=== PATIENT | female | born 1980 | race Caucasian/White ===

== ENCOUNTER 2025-03-20 17:13 | Emergency (ER) | payer OTHER, SELFPAY ==
--- NOTE | 2025-03-20 17:18 | ED_ITS ---
HPI - URI/Sore Throat General Chief Complaint: Dyspnea Stated Complaint: Difficult breathing/Asthma Time Seen by Provider: 03/20/25 17:23 Source: patient Mode of arrival: ambulatory Limitations: no limitations History of Present Illness ED Provider: Luisa Coppola APRN HPI Narrative: 44 yo female with history of asthma here with complaints of cough, wheezing. No recent illnesses. Feels pollen and the humidity may be triggering her asthma. Hasn't used an inhaler in years. Took 15mg prednisone before coming in. No chest pain, shortness of breath, vomiting, diarrhea, skin rash, fevers, chills, leg swelling or leg pain. Related Data Previous Rx's ?Medication ?Instructions ?Recorded loratadine 10 mg tablet (Claritin) 10 mg PO DAILY #30 tabs 03/20/25 prednisone 20 mg tablet 40 mg (2 x 20 mg) PO DAILY #8 tabs 03/20/25 Allergies Allergy/AdvReac Type Severity Reaction Status Date / Time No Known Allergies Allergy Verified 03/20/25 17:20 Review of Systems Review of Systems: Yes all other systems are reviewed and are negative Constitutional: Constitutional: Reports no additional constitutional complaints, Denies body ache(s), Denies chills, Denies fever(s), Denies headache(s) and Denies weakness Eyes: Eyes: Reports no additional eye complaints and Denies change in vision ENT: Reports system reviewed and no additional complaints, except as documented, Denies dizziness, Denies headache(s), Denies nasal congestion, Denies nasal discharge and Denies neck pain Cardiovascular: Cardiovascular: Reports no additional cardiovascular complaints, Denies chest pain, Denies leg edema and Denies dyspnea Respiratory: Respiratory: Reports no additional respiratory complaints, Reports cough and Denies dyspnea Gastrointestinal: Gastrointestinal: Reports no additional gastrointestinal complaints, Denies abdominal pain, Denies diarrhea, Denies nausea and Denies vomiting Genitourinary: Genitourinary: Reports no additional female genitourinary complaints and Denies urinary incontinence Musculoskeletal: Musculoskeletal: Reports no additional musculoskeletal complaints, Denies back pain, Denies arthralgias, Denies joint swelling, Denies neck pain, Denies numbness and Denies tingling Integumentary/Breasts: Skin/Breast: Reports system reviewed and no additional complaints, except as docu and Denies rash Neurologic: Reports system reviewed and no additional complaints, except as documented, Denies Abnormal speech present, Denies dizziness, Denies headache(s), Denies numbness, Denies tingling and Denies weakness PMFSH Past Medical History Attestation statement: The following information was validated with the patient. Source: old records reviewed and nursing notes reviewed Social History Social History Advance Directives: No Advance Directives Information Provided: Yes Physical Exam Vital Signs: Vital Signs: Last Vital Signs Temp 98.5 F 03/20/25 17:19 Pulse 109 H 03/20/25 17:19 Resp 18 03/20/25 17:19 BP 166/94 H 03/20/25 17:19 Pulse Ox 99 03/20/25 17:19 O2 Del Method Room Air 03/20/25 17:19 BMI result Body Mass Index 42.4 Const: General: cooperative, healthy appearing, comfortable and no acute distress Orientation/consciousness: patient oriented x3 Limitations: no limitations HEENT: Head: Yes normal to inspection Ears: hearing grossly normal bilaterally General nose exam: Normal external nose present Face and sinus: Yes normal facial exam Mouth: Normal oral and palatal mucosa present Throat: Yes posterior oropharynx normal Eyes: General: appearance normal, both eyes and all related structures Pupils: Equal, round and reactive pupils present Neck: Neck: Yes normal visual inspection Chest: Chest palpation & inspection: normal inspection of the chest Resp: Effort & Inspection: normal respiratory effort Auscultation: wheezes (mild) expiratory wheezes Cardio: Rate: regular rate Rhythm: regular rhythm Peripheral pulses: Peripheral pulses 2+ throughout GI: Inspection: Yes normal to inspection Palpation (GI): Soft to palpation and nontender Auscultation: normal bowel sounds Back/Spine/Pelvis: Thoracic/Lumbar Spine: thoracic and lumbar spine normal to inspection Skin: General skin exam: no rashes or lesions noted Neuro: General: patient oriented x3, no focal motor deficits and normal sensation to monofilament Cranial nerves: Yes Equal, round and reactive pupils present Cognition (Neuro): normal cognition Speech: No Abnormal speech present Gait exam (Neuro): Normal gait present Motor exam (neuro): 5/5 motor strength present throughout Extrem: General: Yes normal to inspection, Yes no pedal edema and Yes no calf tenderness Course Course Course Narrative: Eva Coppola APRN 03/20 1715 This is a rapid medical exam. Deferred additional HPI, ROS, PE to primary provider. 44 yo female with history of asthma here with complaints of cough, wheezing. No recent illnesses. Feels pollen and the humidity may be triggering her asthma. Hasn't used an inhaler in years. Took 15mg prednisone before coming in. Mild exp wheezing in triage. Will give albuterol MDI 4 puffs in triage and re-assess. VSS Medications Administered Discontinued Medications Generic Name Dose Route Start Last Admin Trade Name Freq PRN Reason Stop Dose Admin Albuterol Sulfate 4 puff 03/20/25 17:20 03/20/25 17:24 Albuterol Sulfate 90 Mcg 8 Gm Inhaler INHALE 03/20/25 17:21 4 puff ONCE ONE Administration Prednisone 20 mg 03/20/25 17:21 03/20/25 17:29 Prednisone 20 Mg Tablet PO 03/20/25 17:22 20 mg ONCE ONE Administration Medical Decision Making Medical Decision Making [facility] Narrative: 44 yo female with history of asthma here with complaints of cough, wheezing. No recent illnesses. Feels pollen and the humidity may be triggering her asthma. Hasn't used an inhaler in years. Took 15mg prednisone before coming in. No chest pain, shortness of breath, vomiting, diarrhea, skin rash, fevers, chills, leg swelling or leg pain. Mild exp wheezing VSS Will give albuterol MDI 4 puffs, 20mg prednisone PO and reassess Differential Diagnosis Differential Diagnoses: The differential diagnosis associated with the presentation includes asthma exacerbtion Admission/Observation Consideration of admission/observation: Escalation of care including admission/observation considered No hypoxia or tachypnea requiring supplemental oxygen and or admission Tests considered The following testing was considered but not selected: no hypoxia or tachypnea suggesting need for chest imaging Prescription Management I considered prescription management with: Antibiotic Chronic Conditions Patient?s care impacted by: Other (asthma) Discharge Plan Discharge Clinical Impression: Asthma with exacerbation Patient Disposition: Home, Self-Care Instructions: Asthma (ED) Additional Instructions: Use albuterol 2 puffs every 4 hrs as needed for cough/wheezing Start prednisone tomorrow Prescriptions: New prednisone 20 mg tablet 40 mg PO DAILY Qty: 8 0RF loratadine [Claritin] 10 mg tablet 10 mg PO DAILY Qty: 30 0RF Referrals: Nithya Rivas MD [Primary Care Provider] - 1 week Print Language: Arabic
[2025-03-20 17:19] VITALS: BP 166/94; PULSE 109; RESP 18; TEMP 36.9; O2SAT 99; BMI 42.4
[2025-03-20] MEDS: Albuterol Sulfate 90 MCG 8 GM INHALER 4 PUFF INHALE (17:24)
[2025-03-20] MEDS: predniSONE 20 MG TABLET PO (17:29)
[2025-03-20 18:03] VITALS: BP 166/94; PULSE 109; RESP 18; TEMP 36.9; O2SAT 99
== END 2025-03-20 18:04 | disposition home or self-care (01) ==
PROVIDERS: Emergency Provider Emergency Medicine; PCP Internal Medicine
DX: J45.901 Unspecified asthma with (acute) exacerbation (principal); R05.9 Cough, unspecified
CPT/HCPCS: 99282; 99283; 99284

== ENCOUNTER 2025-03-23 10:18 | Emergency (ER) | payer OTHER, SELFPAY ==
--- NOTE | ~2025-03-23 | XR_ITS ---
EXAMINATION: XR CHEST CLINICAL INFORMATION: cough SOB COMPARISON: None available. TECHNIQUE: 2 views of the chest were obtained. FINDINGS: Mildly elevated right hemidiaphragm. The cardiac, hilar, and mediastinal contours are normal. The lungs are clear bilaterally. There is no pneumothorax or pleural effusion. There is no focal osseous or soft tissue abnormality. Cholecystectomy clips noted. XR/XR chest 2V IMPRESSION: Normal chest. Electronically signed by: Everardo France MD 03/23/2025 11:21 AM EDT
[2025-03-23 10:43] VITALS: BP 120/76; PULSE 99; RESP 18; TEMP 36.9; O2SAT 97; BMI 42.5
[2025-03-23 11:42] LABS: Influenza A PCR NEGATIVE (Negative); Influenza B PCR NEGATIVE (Negative); Resp Syncy Virus RNA Qual PCR NEGATIVE (Negative); SARS COV2 PCR INHOUSE NEGATIVE (Negative)
[2025-03-23 15:35] VITALS: BP 130/72; PULSE 96; RESP 18; TEMP 36.8; O2SAT 96
--- NOTE | 2025-03-23 16:30 | ED.GENADULT ---
HPI - General Adult General Chief complaint: Upper Respiratory Symptoms Stated complaint: SOB, asthma Time Seen by Provider: 03/23/25 16:28 Source: patient, RN notes reviewed and old records reviewed Mode of arrival: ambulatory Limitations: no limitations History of Present Illness ED Provider: [facility] narrative: Patient is a 44-year-old female with history of asthma presenting to the emergency department with complaint of cough and shortness of breath since 03/18. Seen here 03/20 and prescribed prednisone and loratadine. Reports symptoms have not improved since that time. Denies fevers. Denies chest pain or palpitations, lower extremity edema, calf pain. Feels her wheezing is worse at night. Has albuterol inhaler at home. MD complaint: cough Onset (ago): day(s) Related Data Previous Rx's ?Medication ?Instructions ?Recorded loratadine 10 mg tablet (Claritin) 10 mg PO DAILY #30 tabs 03/20/25 prednisone 20 mg tablet 40 mg (2 x 20 mg) PO DAILY #8 tabs 03/20/25 Allergies Allergy/AdvReac Type Severity Reaction Status Date / Time No Known Allergies Allergy Verified 03/23/25 10:46 Review of Systems Review of Systems: as per hpi Yes all other systems are reviewed and are negative Constitutional: Constitutional: Reports as per HPI Physical Exam ED Vital Signs: Vital Signs - 24 hr 03/23/25 10:43 03/23/25 15:35 Temperature 98.4 F 98.2 F Pulse Rate 99 96 Respiratory Rate 18 18 Blood Pressure 120/76 130/72 Pulse Oximetry 97 96 Oxygen Delivery Method Room Air Room Air BMI result Body Mass Index 42.5 Vital signs have been reviewed and appear to be correct. Blood pressure normal. Heart rate normal. Respiratory rate normal. Temperature normal. Oxygen saturation normal. Const General: cooperative, healthy appearing and no acute distress Orientation/consciousness: oriented to person, oriented to place, oriented to time and patient oriented x3 Limitations: no limitations HENMT Head: Yes normocephalic and Yes atraumatic Ears: external ears normal General nose exam: Normal external nose present Face and sinus: Yes face symmetric Mouth: oropharynx normal and moist mucous membranes Throat: Yes uvula midline Eyes Pupils: Equal, round and reactive pupils present Neck Neck: Yes normal visual inspection and Yes supple Resp Effort & Inspection: normal respiratory effort and able to speak in complete sentences Auscultation: clear to auscultation bilaterally Cardio Rate: regular rate Rhythm: regular rhythm Heart sounds: S1 normal heart sound present and S2 normal heart sound present GI Palpation (GI): Soft to palpation and nontender Auscultation: normoactive bowel sounds General: Yes no CVA tenderness Back/Spine/Pelvis Back: no CVA tenderness Skin General skin exam: elasticity normal and turgor normal Neuro General: oriented to person, oriented to place, oriented to time, patient oriented x3, moves all extremities, no focal motor deficits and CN's II-XI intact bilaterally Cranial nerves: Yes Equal, round and reactive pupils present Cognition (Neuro): normal cognition Extrem General: Yes full ROM, Yes no pedal edema and Yes no calf tenderness Psych Mental Status: mental status grossly normal Affect: normal affect Thought process: Normal thought process present Medical Decision Making Medical Decision Making [facility] Narrative: Patient is a 44-year-old female with history of asthma presenting to the emergency department with complaint of cough and shortness of breath since 03/18. On exam patient is awake, A+Ox3, VS WNL, afebrile, normal neurological exam without focal deficits, physical exam findings as above. Given reported symptoms and physical exam findings, initial differential includes but is not limited to viral illness, covid, flu, bronchitis, pneumonia, asthma exacerbation. Viral panel negative. X-ray chest notable for no evidence of pneumonia. My interpretation is in agreement with the radiologist's interpretation. Results discussed with patient and all questions answered. Physical exam unremarkable, no wheezing, adequate oxygenation on room air. Patient has albuterol at home. Discussed with patient that symptoms likely due to viral infection which will resolve on it's own over time. Advised nasal saline spray, OTC Delsym for cough. Return precautions discussed. Patient verbalized understanding of and agreement with plan. Differential Diagnosis Differential Diagnoses: The differential diagnosis associated with the presentation includes as per [facility] Admission/Observation Consideration of admission/observation: Escalation of care including admission/observation considered Patient would have been admitted to the hospital had their work up had any findings where hospital admission was appropriate and their clinical presentation warranted hospital admission. Lab Data [facility] Lab Attestation statement: I reviewed the patient's lab results. as per [facility] Labs: Lab Results 03/23/25 Range/Units 10:56 Influenza Type A (PCR) NEGATIVE (Negative) Influenza Type B (PCR) NEGATIVE (Negative) RSV RNA Qual (PCR) NEGATIVE (Negative) SARS-CoV-2 RNA (RT-PCR) NEGATIVE (Negative) Independent Interpretation I performed an independent interpretation of an: Plain X-Ray Interpretation: No evidence of pna on cxr Radiology Impression Discussion of test interpretation with radiology: I have reviewed the radiologist's reading. Radiologist Impression: EXAMINATION: XR CHEST CLINICAL INFORMATION: cough SOB COMPARISON: None available. TECHNIQUE: 2 views of the chest were obtained. FINDINGS: Mildly elevated right hemidiaphragm. The cardiac, hilar, and mediastinal contours are normal. The lungs are clear bilaterally. There is no pneumothorax or pleural effusion. There is no focal osseous or soft tissue abnormality. Cholecystectomy clips noted. External Record Review External record reviewed: Inpatient record, Office record and Outpatient record Discharge Plan Discharge Clinical Impression: Upper respiratory infection Patient Disposition: Home, Self-Care Instructions: Upper Respiratory Infection (DC), Viral Syndrome (ED) Additional Instructions: You were evaluated in the emergency department today for shortness of breath and cough. Your Covid, flu, RSV, and strep tests were all negative. Your x-ray did not show evidence of pneumonia. Your symptoms are likely related to a viral illness which will resolve on its own with time and rest. You should ensure adequate fluid intake, and can use Tylenol 650 mg or ibuprofen 600 mg every 6 hours as needed for fever or discomfort. We also recommend using over the counter nasal saline spray to thin your mucous. You can use this several times per day. Please follow-up with your primary care provider this week. Return to the emergency department if you develop chest pain, worsening shortness of breath, difficulty swallowing, fever 100.4? F or greater or any other concerning symptoms. Prescriptions: No Action prednisone 20 mg tablet 40 mg PO DAILY Qty: 8 0RF loratadine [Claritin] 10 mg tablet 10 mg PO DAILY Qty: 30 0RF Print Language: Sami
[2025-03-23 16:55] VITALS: BP 130/72; PULSE 96; RESP 18; TEMP 36.8; O2SAT 96
== END 2025-03-23 16:56 | disposition home or self-care (01) ==
PROVIDERS: Emergency Provider Emergency Medicine Emergency Medical Services; PCP Internal Medicine
DX: J06.9 Acute upper respiratory infection, unspecified (principal); R06.02 Shortness of breath; R05.9 Cough, unspecified; Z03.818 Encounter for observation for suspected exposure to other biological agents ruled out
CPT/HCPCS: 0241U; 71046; 99282; 99283

== ENCOUNTER → 2025-03-23 11:00 | Outpatient (BNV) | payer OTHER, SELFPAY | PROVIDERS: PCP Internal Medicine; Visit Provider Radiology Diagnostic Radiology | DX: R06.02 Shortness of breath (principal) | CPT/HCPCS: 71046 ==

== ENCOUNTER 2025-04-21 07:57 | Outpatient (AMB) | payer OTHER, SELFPAY ==
--- NOTE | 2025-04-21 08:06 | MHC.PC.OV ---
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 Transferring care from [facility]. Medical records have been requested and have not received. Dietary Service Aide Required: Yes Dietary Service Aide Language: Marketing Sales Supervisor Name: James ([id number]) Information Interpreted: non-clinical & clinical Taffy Candy Maker: Not Required per policy Accompanied by: Self / Same As Patient Allergies No Known Allergies Allergy (Verified 04/21/25 08:14) Medication List - Last Reconciled 04/21/25 by Sammie Joshi PA-C albuterol sulfate 90 mcg/actuation (Ventolin HFA) 1 inh inhalation QID Tobacco use date assessed: 04/21/25 Dental Screening Dental Screen Date: 04/21/25 Did you have a dental visit in the last 12 months?: Yes Did you have a dental problem in the last 6 months where you did not have access to dental care?: No Was dental information given to patient?: Patient has dentist HPI 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 Patient has a history of asthma and has been seen twice in [facility] this past month for asthma exacerbation and upper respiratory infection. software developer manager James ([id number]) was used for the duration of this visit. Patient tells us today that she was told she has a benign mass in the right breast. She underwent a biopsy of this mass and was determined to be benign but was advised to have it removed due to the large size of the mass. The mass has not been growing or changing and is not painful however she does mentioned in his uncomfortable in some positions. She also mentions having irregular menses characterized by heavy periods that last more than a week and return after a short period. [facility] Surgical History History of tubal ligation History of cholecystectomy History of breast biopsy Family History Father Mental health disorder Social History Housing: Apartment Alcohol intake: current Alcohol intake frequency: a few times a month Patient Tobacco Use Status: Never used Tobacco e-Cigarette/Vaping Use: Never Used Second Hand Smoke Exposure: No service: No Current occupational status: employed (Part) Cognitive needs: No Hearing needs: No Vision needs: Yes (Glasses) Female Reproductive History Menstrual Duration of menses: >10 days control method: none Questionnaire PHQ-9 Over the last 2 weeks, how often have you been bothered by any of the following problems? 1. Little interest or pleasure in doing things: not at all 2. Feeling down, depressed, or hopeless: not at all 3. Trouble falling or staying asleep, or sleeping too much: not at all 4. Feeling tired or having little energy: not at all 5. Poor appetite or overeating: not at all 6. Feeling bad about yourself - or that you are a failure or have let yourself or your family down: not at all 7. Trouble concentrating on things, such as reading the newspaper or watching television: not at all 8. Moving or speaking so slowly that other people could have noticed. Or the opposite - being so fidgety or restless that you have been moving around a lot more than usual: not at all 9. Thoughts that you would be better off or of hurting yourself in some way: not at all Total score: 0 Depression Screening Interpretation: Negative Depression Screening Done: Yes Source: Developed by Drs. Hugo Huggins, Belkis Campbell, Manjeet Call and colleagues, with an educational ginna from [employer]. Thrive Questionnaire Date Thrive assessed: 04/19/25 I am a: Patient What is your living situation today?: I have a steady place to live Within the past 12 months, did the food you bought not last and you didn't have the money to get more?: Never true Within the past 12 months, did you worry whether your food would run out before you got money to buy more?: Never true Do you have trouble paying for medicines?: No Do you have trouble getting transportation to medical appointments?: No Do you have trouble paying your heating and electricity bill?: No Do you have trouble taking care of your child, family member or friend?: No Do you have trouble with day-to-day activities such as bathing, preparing meals, shopping, managing finances, etc.?: No Are you currently unemployed and looking for a job?: Yes Are you interested in more education?: I choose not to answer this question Please select the resources that you would like help with: Job search/training Currently or been in a relationship where the following occur: No concerns reported THRIVE Score: 0 AUDIT C Alcohol Use Questionnaire (AUDIT-C) 1. How often do you have a drink containing alcohol?: Monthly or less 2. How many drinks containing alcohol do you have on a typical day when you are drinking?: 1 or 2 3. How often do you have six or more drinks on one occasion?: Never Total Score: 1 JONNATHAN-7 AMB Questionnaire JONNATHAN-7 Date JONNATHAN - 7 assessed: 04/21/25 Feeling nervous, anxious, or on edge: 0 = Not at all Not being able to stop or control worryin = Not at all Worrying too much about different things: 0 = Not at all Trouble relaxin = Not at all Being so restless that it is hard to sit still: 0 = Not at all Becoming easily annoyed or irritable: 0 = Not at all Feeling afraid as if something awful might happen: 0 = Not at all Total JONNATHAN-7 score (0-4 normal; 5-9 mild; 10-14 moderate; 15-21 severe): 0 Source: Developed by Drs. Hugo Huggins, Belkis Campbell, Manjeet Call and colleagues, with an educational ginna from [employer]. JONNATHAN-7 Assessment Billing JONNATHAN-7 Assessment Tool: JONNATHAN-7 Assessment 22626 Review of Systems Const Denies body aches, Denies chills, Denies fever(s), Denies headache(s) and Denies poor appetite Eyes Reports no additional complaints ENT Denies dysphagia, Denies dizziness, Denies headache(s) and Denies odynophagia Card Denies chest pain, Denies syncope, Denies edema, Denies irregular heart rhythm, Denies lightheadedness and Denies dyspnea Resp Denies cough and Denies dyspnea GI Denies abdominal pain, Denies constipation, Denies dysphagia, Denies diarrhea, Denies nausea, Denies odynophagia and Denies vomiting Reports as per HPI Musc Reports no additional complaints and Denies abnormal gait Skin/Breast Reports system reviewed and no additional complaints, except as documented Neuro Denies abnormal gait, Denies dizziness, Denies syncope and Denies headache(s) Psych Reports no additional complaints Physical exam (Primary Care) Vital Signs: Last Vital Signs Temp 97.3 F 04/21/25 08:10 Pulse 103 H 04/21/25 08:10 BP 124/80 04/21/25 08:10 Pulse Ox 97 04/21/25 08:10 Oxygen Delivery Method Room Air 04/21/25 08:10 BMI result Body Mass Index 43.3 Tobacco/Smoking Status: Tobacco use Status Tobacco use date assessed 04/21/25 04/21/25 08:14 Patient Tobacco Use Status Never used Tobacco 04/21/25 08:26 e-Cigarette/Vaping Use Never Used 04/21/25 08:26 PHQ-9: PHQ-9 Score PHQ-9: Total score 0 04/21/25 13:44 Depression Screening Interpretation: Negative Thrive Assessment: Date of Thrive Assessment Date Thrive assessed 04/19/25 04/21/25 08:14 Currently or been in a relationship where the following occur: No concerns reported Const General: cooperative, healthy appearing, comfortable and no acute distress Orientation/consciousness: patient oriented x3 HENMT Head: Yes normocephalic Ears: hearing grossly normal bilaterally General nose exam: Normal external nose present Eyes General: appearance normal, both eyes and all related structures Conjunctivae: conjunctivae normal Neck Neck: Yes full ROM and Yes no lymphadenopathy Resp Effort & Inspection: normal respiratory effort Auscultation: clear to auscultation bilaterally, no crackles, no rales, no rhonchi and no wheezes Cardio Rate: regular rate Rhythm: regular rhythm Skin General skin exam: no rashes or lesions noted Neuro General: patient oriented x3 Gait exam (Neuro): Normal gait present Extrem General: Yes normal to inspection, Yes full ROM and No edema Psych Affect: normal affect Attitude: cooperative Insight: Good insight present (Psych) Judgement: Good judgement present (Psych) Coding Level of Care Code New Pt Level 4 (83679) Diagnoses Mild intermittent asthma without complication J45.20 Asthma severity: mild Asthma persistence: intermittent Asthma complication type: uncomplicated Seasonal allergies J30.2 Benign breast lumps N63.0 Irregular periods N92.6 Morbid obesity with BMI of 40.0-44.9, adult E66.01; Z68.41 Wears glasses Z97.3 Additional Codes JONNATHAN-7 Assessment Billing - JONNATHAN-7 Assessment Tool: JONNATHAN-7 Assessment [id number] ([id number]) Assessment & Plan Assessment & Plan (1) Asthma: Code(s): J45.909 - Unspecified asthma, uncomplicated Category: Medical Qualifiers: Asthma severity: mild Asthma persistence: intermittent Asthma complication type: uncomplicated Qualified Code(s): J45.20 - Mild intermittent asthma, uncomplicated Plan: Asthma currently controlled on present medications. Continue on albuterol as needed. Avoid triggers such as allergies. (2) Seasonal allergies: Code(s): J30.2 - Other seasonal allergic rhinitis Category: Medical Plan: Patient was started on Hydroxyzine by last PCP for skin itching and seasonal allergies. (3) Benign breast lumps: Comment: 2023 diagnosed while in [place] - yearly screening Code(s): N63.0 - Unspecified lump in unspecified breast Category: Medical Plan: Patient was diagnosed with benign breast lump of the right breast in 2023 she was advised to undergo yearly screening. We are working to obtain these records and plan to refer to General surgery for possible excision of the mass pending recommendations from last PCP. (4) Irregular periods: Code(s): N92.6 - Irregular menstruation, unspecified Category: Medical Plan: Referral was placed to gynecology at patient request today. (5) Morbid obesity with BMI of 40.0-44.9, adult: Code(s): E66.01 - Morbid (severe) obesity due to excess calories; Z68.41 - Body mass index [BMI] 40.0-44.9, adult Category: Medical Plan: Healthy diet and regular exercise is encouraged. Patient was counseled today on the risks and benefits of GLP-1 injections as well as the dosing schedule. She has no family history or personal history of thyroid disease and no gallbladder disease. Discussed with the patient the potential GI side effects of this medication. Plan to have repeat blood work after one month of therapy to monitor kidney and liver function before increasing the dose of this medication. Follow up in 2 months for a weight check. (6) Wears glasses: Code(s): Z97.3 - Presence of spectacles and contact lenses Category: Medical Plan: Referral was placed to an computer aided design drafter of the patient request. Plan Plan to obtain blood work as well as updated records from last PCP. Referral was placed to gynecology for regular menses as well as cervical cancer screening. This note was constructed using voice recognition software. While every effort has been made to ensure accuracy and waiter/waitress club, still areas may have been included sometimes these areas may affect the content or meeting of the given symptoms. Total time spent caring for the patient today was 30 minutes. This includes time spent before the visit reviewing the chart, time spent during the visit, and time spent after the visit and documentation. Orders: Orders Free T4 (Free Thyroxine) 04/21/25 E66.01 - Morbid (severe) obesity due to excess calories, Z00.00 - Encounter for general adult medical examination without abnormal findings, Z68.41 - Body mass index [BMI] 40.0-44.9, adult Hemoglobin A1c 04/21/25 E66.01 - Morbid (severe) obesity due to excess calories, Z13.1 - Encounter for screening for diabetes mellitus, Z68.41 - Body mass index [BMI] 40.0-44.9, adult TSH reflex Free T4 04/21/25 E66.01 - Morbid (severe) obesity due to excess calories, Z00.00 - Encounter for general adult medical examination without abnormal findings, Z68.41 - Body mass index [BMI] 40.0-44.9, adult Vitamin B12 and Folate 04/21/25 E66.01 - Morbid (severe) obesity due to excess calories, Z13.21 - Encounter for screening for nutritional disorder, Z68.41 - Body mass index [BMI] 40.0-44.9, adult Vitamin D 25-OH Total 04/21/25 E66.01 - Morbid (severe) obesity due to excess calories, Z00.00 - Encounter for general adult medical examination without abnormal findings, Z68.41 - Body mass index [BMI] 40.0-44.9, adult Lipid Panel 04/21/25 E66.01 - Morbid (severe) obesity due to excess calories, Z13.220 - Encounter for screening for lipoid disorders, Z68.41 - Body mass index [BMI] 40.0-44.9, adult Comprehensive Met. Panel 04/21/25 E66.01 - Morbid (severe) obesity due to excess calories, Z00.00 - Encounter for general adult medical examination without abnormal findings, Z68.41 - Body mass index [BMI] 40.0-44.9, adult Complete Blood Count Auto Diff 04/21/25 N92.6 - Irregular menstruation, unspecified, Z00.00 - Encounter for general adult medical examination without abnormal findings Referrals HOOP RIVETING MACHINE OPERATOR Referral N92.6 - Irregular menstruation, unspecified, Z12.4 - Encounter for screening for malignant neoplasm of cervix Optometry Referral Z97.3 - Presence of spectacles and contact lenses Medications: New hydroxyzine HCl 50 mg PO BEDTIME 30 tabs 0RF tirzepatide (weight loss) (Zepbound) for 4 weeks 2.5 mg (0.5 mL) subcut QWEEK 2 mL 0RF E66.01 - Morbid (severe) obesity due to excess calories, Z68.41 - Body mass index [BMI] 40.0-44.9, adult Discontinued prednisone Discontinued Reason: Patient Completed Course 40 mg (2 x 20 mg) PO DAILY 8 tabs 0RF
[2025-04-21 08:10] VITALS: BP 124/80; PULSE 103; TEMP 36.3; O2SAT 97; BMI 43.3
== END 2025-04-21 09:05 | disposition home or self-care (01) ==
LOC: HO.HMCH 07:58
DX: J45.20 Mild intermittent asthma, uncomplicated (principal); E66.01 Morbid (severe) obesity due to excess calories; Z68.41 Body mass index [BMI] 40.0-44.9, adult; J30.2 Other seasonal allergic rhinitis; N63.10 Unspecified lump in the right breast, unspecified quadrant; N92.6 Irregular menstruation, unspecified; Z97.3 Presence of spectacles and contact lenses

== ENCOUNTER → 2025-04-21 07:57 | Outpatient (BNVA) | payer OTHER, SELFPAY | DX: J45.20 Mild intermittent asthma, uncomplicated (principal); J30.2 Other seasonal allergic rhinitis; N92.6 Irregular menstruation, unspecified; N63.10 Unspecified lump in the right breast, unspecified quadrant; E66.01 Morbid (severe) obesity due to excess calories; Z68.41 Body mass index [BMI] 40.0-44.9, adult; Z97.3 Presence of spectacles and contact lenses | CPT/HCPCS: 96127; 99202 ==

== ENCOUNTER 2025-06-19 07:07 | Outpatient (REF) | payer OTHER, SELFPAY ==
[2025-06-19 07:21] LABS: MANUAL DIFF FLAG NO
[2025-06-19 07:53] LABS: Hematocrit 29.3 % (37.0-47.0); Hemoglobin 8.5 g/dl (12.0-16.0); Imm Gran Abs Auto 0.01 X10*3/uL (0.00-0.03); Imm Gran Pct Auto 0.2 % (0.0-0.4); Lymphocytes Absolute Auto 1.4 X10*3/uL (1.2-4.9); Mean Corpuscular HGB Conc 29.0 g/dl (31.0-35.0); Mean Corpuscular Hemoglobin 19.2 pg (27.0-33.0); Mean Corpuscular Volume 66.3 fL (80.0-98.0); NRBC Abs Auto 0.000 X10*3/uL (0.0-0.012); NRBC Pct Auto 0.0 /100WBC (0.0-0.2); Platelet Count 182 X10*3/uL (160-400); Red Blood Count 4.42 X10*6/uL (4.20-5.50); White Blood Count 4.6 X10*3/uL (4.8-10.8)
[2025-06-19 08:11] LABS: Hemoglobin A1C 85.1517 umol/L; Total Hemoglobin (HGBA1C) 2294.1601 umol/L
[2025-06-19 08:23] LABS: Alanine Aminotransferase 49 U/L (0-31); Albumin Level 4.5 g/dL (3.5-5.0); Alkaline Phosphatase 67 U/L (39-117); Anion Gap 17 (12-20); Aspartate Amino Transferase 37 U/L (5-31); Blood Urea Nitrogen 10 mg/dL (9-16); Calcium 8.9 mg/dL (8.4-10.2); Carbon Dioxide 22 mmol/L (22-29); Chloride 103 mmol/L (96-108); Cholesterol 180 mg/dL (<200); Estimated Glomerular Filt Rate > 60; HDL Cholesterol 45 mg/dL (>40); Potassium 4.3 mmol/L (3.3-5.1); Sodium 138 mmol/L (135-145); Total Protein 7.0 g/dL (6.5-8.0); Triglycerides 72 mg/dL (<150)
[2025-06-19 08:49] LABS: Free T4 (Free Thyroxine) 0.83 ng/dL (0.71-1.85)
[2025-06-19 08:52] LABS: Folate 9.8 ng/mL (> or = 4.0); Vitamin B12 449 pg/mL (200-900)
== END 2025-06-19 07:08 | disposition home or self-care (01) ==
LOC: HO.LAB 07:07
DX: Z00.00 Encounter for general adult medical examination without abnormal findings (principal); Z13.1 Encounter for screening for diabetes mellitus; Z13.21 Encounter for screening for nutritional disorder; Z13.220 Encounter for screening for lipoid disorders; N92.6 Irregular menstruation, unspecified; E66.01 Morbid (severe) obesity due to excess calories; Z68.41 Body mass index [BMI] 40.0-44.9, adult
CPT/HCPCS: 36415; 80053; 80061; 82306; 82607; 82746; 83036; 84439; 84443; 85025

== ENCOUNTER 2025-06-23 15:44 | Outpatient (AMB) | payer OTHER, SELFPAY ==
[2025-06-23 15:53] VITALS: BP 148/80; PULSE 96; RESP 16; TEMP 36.3; O2SAT 100; BMI 43.0
--- NOTE | 2025-06-23 15:53 | MHC.PC.OV ---
Vital Signs 06/23/25 15:53 06/23/25 16:30 Height 5 ft 2.5 in Weight 239 lb 2 oz BMI 43.0 BP 148/80 H 128/82 Blood Pressure Location Lt brachial Rt brachial Position Sitting Sitting Respiration 16 Pulse 96 Pulse Source Pulse Oximeter Temp 97.3 F Temp Source Temporal Artery Scan Pulse Oximetry (%) 100 Oxygen Delivery Method Room Air Intake Visit Reasons: f/u weight loss and labs Senior Statistical Programmer Required: Yes Senior Statistical Programmer Language: Angolan Allergies No Known Allergies Allergy (Verified 06/23/25 16:03) Medication List - Last Reconciled 06/23/25 by Sammie Joshi PA-C albuterol sulfate 90 mcg/actuation (Ventolin HFA) 1 inh inhalation QID ascorbate calcium (vitamin C) 500 mg PO DAILY cholecalciferol (vitamin D3) 25 mcg PO DAILY ferrous sulfate (Feosol) 325 mg PO DAILY hydroxyzine HCl 50 mg PO BEDTIME Tobacco use date assessed: 06/23/25 Dental Screening Dental Screen Date: 06/23/25 Did you have a dental visit in the last 12 months?: Yes Did you have a dental problem in the last 6 months where you did not have access to dental care?: No Was dental information given to patient?: Patient has dentist HPI f/u weight loss and labs HPI Details 44-year-old female with past medical history of asthma, obesity and anemia last seen 04/2025 coming in for follow up. Esteban [id number] was used for the duration of this visit Presenting with a follow-up visit to address multiple health concerns. The patient has been experiencing anemia, likely due to low iron levels associated with heavy menstrual bleeding. Iron supplements and vitamin C have been added to her regimen to improve iron absorption. The patient reports heavy menstrual bleeding, which is suspected to contribute to her anemia. She takes Tylenol frequently for menstrual pain. Recent blood work indicated elevated liver enzymes, potentially linked to frequent Tylenol use. A recheck of liver function is planned. The patient has been diagnosed with vitamin D deficiency and has been prescribed vitamin D supplements. A small mass was palpated in the right breast. The patient is awaiting a referral to a general surgeon for further evaluation and potential biopsy. The patient has a skin lesion that has not healed for two months, with a family history of skin cancer. Referral to dermatology for evaluation and possible biopsy is planned. [facility] Surgical History History of tubal ligation History of cholecystectomy History of breast biopsy Family History Father Mental health disorder Mother Lupus (systemic lupus erythematosus) Arthritis Daughter No problems noted. Son No problems noted. Son No problems noted. Son No problems noted. Social History Housing: Apartment Alcohol intake: former Patient Tobacco Use Status: Never used Tobacco e-Cigarette/Vaping Use: Never Used Second Hand Smoke Exposure: No service: No Current occupational status: employed (Part) Cognitive needs: No Hearing needs: No Vision needs: Yes (Glasses) Questionnaire PHQ-9 Over the last 2 weeks, how often have you been bothered by any of the following problems? 1. Little interest or pleasure in doing things: not at all 2. Feeling down, depressed, or hopeless: not at all 3. Trouble falling or staying asleep, or sleeping too much: not at all 4. Feeling tired or having little energy: not at all 5. Poor appetite or overeating: not at all 6. Feeling bad about yourself - or that you are a failure or have let yourself or your family down: not at all 7. Trouble concentrating on things, such as reading the newspaper or watching television: not at all 8. Moving or speaking so slowly that other people could have noticed. Or the opposite - being so fidgety or restless that you have been moving around a lot more than usual: not at all 9. Thoughts that you would be better off or of hurting yourself in some way: not at all Total score: 0 Depression Screening Interpretation: Negative Depression Screening Done: Yes Source: Developed by Drs. Hugo Huggins, Belkis Campbell, Manjeet Call and colleagues, with an educational ginna from [employer]. Thrive Questionnaire Date Thrive assessed: 04/19/25 I am a: Patient What is your living situation today?: I have a steady place to live Within the past 12 months, did the food you bought not last and you didn't have the money to get more?: Never true Within the past 12 months, did you worry whether your food would run out before you got money to buy more?: Never true Do you have trouble paying for medicines?: No Do you have trouble getting transportation to medical appointments?: No Do you have trouble paying your heating and electricity bill?: No Do you have trouble taking care of your child, family member or friend?: No Do you have trouble with day-to-day activities such as bathing, preparing meals, shopping, managing finances, etc.?: No Are you currently unemployed and looking for a job?: Yes Are you interested in more education?: I choose not to answer this question Please select the resources that you would like help with: Job search/training Currently or been in a relationship where the following occur: No concerns reported THRIVE Score: 0 AUDIT C Alcohol Use Questionnaire (AUDIT-C) 1. How often do you have a drink containing alcohol?: Monthly or less 2. How many drinks containing alcohol do you have on a typical day when you are drinking?: 1 or 2 3. How often do you have six or more drinks on one occasion?: Never Total Score: 1 JONNATHAN-7 AMB Questionnaire JONNATHAN-7 Date JONNATHAN - 7 assessed: 04/21/25 Feeling nervous, anxious, or on edge: 0 = Not at all Not being able to stop or control worryin = Not at all Worrying too much about different things: 0 = Not at all Trouble relaxin = Not at all Being so restless that it is hard to sit still: 0 = Not at all Becoming easily annoyed or irritable: 0 = Not at all Feeling afraid as if something awful might happen: 0 = Not at all Total JONNATHAN-7 score (0-4 normal; 5-9 mild; 10-14 moderate; 15-21 severe): 0 Source: Developed by Drs. Hugo Huggins, Belkis Campbell, Manjeet Call and colleagues, with an educational ginna from [employer]. Review of Systems Const Denies body aches, Denies chills, Denies fever(s), Denies headache(s) and Denies poor appetite Eyes Reports no additional complaints ENT Denies dizziness and Denies headache(s) Card Denies chest pain, Denies lightheadedness and Denies dyspnea Resp Denies cough and Denies dyspnea GI Denies nausea and Denies vomiting Reports no additional complaints Musc Reports no additional complaints and Denies abnormal gait Skin/Breast Reports system reviewed and no additional complaints, except as documented Neuro Denies abnormal gait, Denies dizziness and Denies headache(s) Psych Reports no additional complaints Physical exam (Primary Care) Vital Signs: Last Vital Signs Temp 97.3 F 06/23/25 15:53 Pulse 96 06/23/25 15:53 Resp 16 06/23/25 15:53 BP 148/80 H 06/23/25 15:53 Pulse Ox 100 06/23/25 15:53 Oxygen Delivery Method Room Air 06/23/25 15:53 BMI result Body Mass Index 43.0 Tobacco/Smoking Status: Tobacco use Status Tobacco use date assessed 06/23/25 06/23/25 15:58 Patient Tobacco Use Status Never used Tobacco 06/23/25 15:58 e-Cigarette/Vaping Use Never Used 06/23/25 15:58 PHQ-9: PHQ-9 Score PHQ-9: Total score 0 06/23/25 16:03 Depression Screening Interpretation: Negative Thrive Assessment: Date of Thrive Assessment Date Thrive assessed 04/19/25 06/23/25 15:58 Currently or been in a relationship where the following occur: No concerns reported Const General: cooperative, healthy appearing, comfortable and no acute distress Orientation/consciousness: patient oriented x3 HENMT Head: Yes normocephalic Ears: hearing grossly normal bilaterally General nose exam: Normal external nose present Eyes General: appearance normal, both eyes and all related structures Conjunctivae: conjunctivae normal Neck Neck: Yes full ROM and Yes no lymphadenopathy Chest Chest/axillae images:  1. soft, non tender, mobile mass with smooth edges lateral aspect of the right breast Resp Effort & Inspection: normal respiratory effort Auscultation: clear to auscultation bilaterally, no crackles, no rales, no rhonchi and no wheezes Cardio Rate: regular rate Rhythm: regular rhythm Skin General skin exam: no rashes or lesions noted Neuro General: patient oriented x3 Gait exam (Neuro): Normal gait present Extrem General: Yes normal to inspection, Yes full ROM and No edema Psych Affect: normal affect Attitude: cooperative Insight: Good insight present (Psych) Judgement: Good judgement present (Psych) Coding Level of Care Code Est Pt Level 3 (57165) Diagnoses Morbid obesity with BMI of 40.0-44.9, adult E66.01; Z68.41 Mild intermittent asthma without complication J45.20 Asthma complication type: uncomplicated Asthma persistence: intermittent Asthma severity: mild Iron deficiency anemia D50.9 Vitamin D deficiency E55.9 Skin lesion L98.9 Breast mass, right N63.10 Elevated LFTs R79.89 Assessment & Plan Assessment & Plan (1) Morbid obesity with BMI of 40.0-44.9, adult: Code(s): E66.01 - Morbid (severe) obesity due to excess calories; Z68.41 - Body mass index [BMI] 40.0-44.9, adult Category: Medical Plan: Healthy diet and regular exercise is encouraged. She is currently following with weight loss clinic. (2) Asthma: Code(s): J45.909 - Unspecified asthma, uncomplicated Category: Medical Qualifiers: Asthma complication type: uncomplicated Asthma persistence: intermittent Asthma severity: mild Qualified Code(s): J45.20 - Mild intermittent asthma, uncomplicated Plan: Asthma currently controlled on present medications. Continue on albuterol as needed. Avoid triggers such as allergies. (3) Iron deficiency anemia: Code(s): D50.9 - Iron deficiency anemia, unspecified Category: Medical Plan: Patient having iron-deficiency anemia plan to replace with iron supplement and vitamin-C supplement. Plan to repeat labs in 2 months and consider referral to Hematology if no improvement. (4) Vitamin D deficiency: Code(s): E55.9 - Vitamin D deficiency, unspecified Category: Medical Plan: Vitamin-D low on last blood work plan for supplementation continue to monitor. (5) Skin lesion: Code(s): L98.9 - Disorder of the skin and subcutaneous tissue, unspecified Category: Medical Plan: Referral was placed to Dermatology (6) Breast mass, right: Code(s): N63.10 - Unspecified lump in the right breast, unspecified quadrant Category: Medical Plan: Patient was diagnosed with benign breast lump of the right breast in 2023 she was advised to undergo yearly screening. While in [place] she did request excision of the mass as it can be occasionally painful. We are still awaiting results from her last PCP however I did place a referral to General surgery at patient request. (7) Elevated LFTs: Code(s): R79.89 - Other specified abnormal findings of blood chemistry Category: Medical Plan: Avoid excessive use of Tylenol and alcohol consumption. Plan for repeat blood work prior to next visit Plan The patient will continue with iron supplements and vitamin C to address anemia, with a recheck of blood work planned in a few weeks to monitor red blood cell count and iron levels. A re-evaluation of liver function is planned due to elevated liver enzymes, potentially linked to frequent Tylenol use for menstrual pain. The patient has been prescribed vitamin D supplements to address the deficiency identified in recent lab results. A referral to a general surgeon has been made for further evaluation of the breast mass, with a potential biopsy to be considered. The patient will be referred to dermatology for evaluation of the non-healing skin lesion, with a biopsy to be considered due to the family history of skin cancer. The patient's asthma management will continue with albuterol as needed, given the current stability of symptoms. This note was constructed using voice recognition software. While every effort has been made to ensure accuracy and canal driver, still areas may have been included sometimes these areas may affect the content or meeting of the given symptoms. Total time spent caring for the patient today was 20 minutes. This includes time spent before the visit reviewing the chart, time spent during the visit, and time spent after the visit and documentation. Patient was informed and verbally consented to the use of an ambient scribe for clinic note documentation during this visit. Orders: Referrals Dermatology Referral L98.9 - Disorder of the skin and subcutaneous tissue, unspecified General Surgery Referral N63.10 - Unspecified lump in the right breast, unspecified quadrant
[2025-06-23 16:30] VITALS: BP 128/82
== END 2025-06-23 16:35 | disposition home or self-care (01) ==
LOC: HO.HMCH 15:45
DX: E66.01 Morbid (severe) obesity due to excess calories (principal); Z68.41 Body mass index [BMI] 40.0-44.9, adult; J45.20 Mild intermittent asthma, uncomplicated; D50.9 Iron deficiency anemia, unspecified; E55.9 Vitamin D deficiency, unspecified; L98.9 Disorder of the skin and subcutaneous tissue, unspecified; N63.10 Unspecified lump in the right breast, unspecified quadrant; R79.89 Other specified abnormal findings of blood chemistry

== ENCOUNTER → 2025-06-23 15:44 | Outpatient (BNVA) | payer OTHER, SELFPAY | DX: E66.01 Morbid (severe) obesity due to excess calories (principal); J45.909 Unspecified asthma, uncomplicated; D64.9 Anemia, unspecified; J45.20 Mild intermittent asthma, uncomplicated; D50.9 Iron deficiency anemia, unspecified; E55.9 Vitamin D deficiency, unspecified; L98.9 Disorder of the skin and subcutaneous tissue, unspecified; R79.89 Other specified abnormal findings of blood chemistry; N63.13 Unspecified lump in the right breast, lower outer quadrant; Z68.41 Body mass index [BMI] 40.0-44.9, adult | CPT/HCPCS: 99212 ==

== ENCOUNTER 2025-08-14 07:09 | Outpatient (REF) | payer OTHER, SELFPAY ==
[2025-08-14 07:42] LABS: MANUAL DIFF FLAG NO
[2025-08-14 08:23] LABS: Hematocrit 36.8 % (37.0-47.0); Hemoglobin 10.4 g/dl (12.0-16.0); Imm Gran Abs Auto 0.02 X10*3/uL (0.00-0.03); Imm Gran Pct Auto 0.3 % (0.0-0.4); Lymphocytes Absolute Auto 1.5 X10*3/uL (1.2-4.9); Mean Corpuscular HGB Conc 28.3 g/dl (31.0-35.0); Mean Corpuscular Hemoglobin 20.6 pg (27.0-33.0); Mean Corpuscular Volume 72.7 fL (80.0-98.0); NRBC Abs Auto 0.000 X10*3/uL (0.0-0.012); NRBC Pct Auto 0.0 /100WBC (0.0-0.2); Platelet Count 271 X10*3/uL (160-400); Red Blood Count 5.06 X10*6/uL (4.20-5.50); White Blood Count 6.5 X10*3/uL (4.8-10.8)
[2025-08-14 09:06] LABS: Alanine Aminotransferase 57 U/L (0-31); Albumin Level 4.3 g/dL (3.5-5.0); Alkaline Phosphatase 70 U/L (39-117); Aspartate Amino Transferase 37 U/L (5-31); Iron 26 mcg/dL (30-160); Percent Iron Saturation 7 % (15-50); Total Iron Binding Capacity 380 mcg/dL (228-428); Total Protein 6.6 g/dL (6.5-8.0); Unsaturated Iron Binding 354 ug/dL
[2025-08-14 09:23] LABS: HBS Num1 0.65 mIU/mL (0-7.99); HBc Num1 0.25 S/CO (0.00-0.79); HBsAGNum1 0.38 S/CO (0.00-0.99); Hepatitis B Surface Antigen Negative (Negative); ~HepC Num1 0.09 S/CO (0.00-0.79); ~Hepatitis B Surface Antibody NONREACTIVE (Nonreactive); ~Hepatitis C Antibody Nonreactive (Nonreactive)
[2025-08-14 09:33] LABS: Folate 7.1 ng/mL (> or = 4.0); Vitamin B12 493 pg/mL (200-900)
== END 2025-08-14 07:10 | disposition home or self-care (01) ==
LOC: HO.LAB 07:09
DX: Z00.00 Encounter for general adult medical examination without abnormal findings (principal); Z13.21 Encounter for screening for nutritional disorder; Z11.59 Encounter for screening for other viral diseases; R79.89 Other specified abnormal findings of blood chemistry; D64.9 Anemia, unspecified
CPT/HCPCS: 36415; 80076; 82607; 82746; 83540; 85025; 86704; 86706; 86803; 87340

== ENCOUNTER 2025-09-09 15:31 | Outpatient (AMB) | payer OTHER, SELFPAY ==
[2025-09-09 15:36] VITALS: BP 130/90; PULSE 93; TEMP 36.3; O2SAT 98; BMI 43.2
--- NOTE | 2025-09-09 15:36 | MHC.PC.OV ---
Vital Signs 09/09/25 15:36 09/09/25 16:11 Height 5 ft 2.5 in Weight 240 lb BMI 43.2 BP 130/90 H 132/86 Blood Pressure Location Lt brachial Lt brachial Position Sitting Sitting Pulse 93 Pulse Source Pulse Oximeter Temp 97.3 F Temp Source Temporal Artery Scan Pulse Oximetry (%) 98 Oxygen Delivery Method Room Air Intake Visit Reasons: Annual exam Credit Risk Officer Required: Yes Credit Risk Officer Language: Cuban Allergies No Known Allergies Allergy (Verified 09/09/25 15:51) Medication List - Last Reconciled 09/09/25 by Sammie Joshi PA-C albuterol sulfate 90 mcg/actuation (Ventolin HFA) 1 inh inhalation QID ascorbate calcium (vitamin C) 500 mg PO DAILY cholecalciferol (vitamin D3) 25 mcg PO DAILY ferrous sulfate (Feosol) 325 mg PO DAILY hydroxyzine HCl 50 mg PO BEDTIME Tobacco use date assessed: 06/23/25 Dental Screening Dental Screen Date: 06/23/25 Did you have a dental visit in the last 12 months?: Yes Did you have a dental problem in the last 6 months where you did not have access to dental care?: No Was dental information given to patient?: Patient has dentist HPI Annual exam HPI Details 44-year-old female with past medical history of asthma, obesity and anemia last seen 06/2025 coming in for annual exam. watch assembler Manda [id number] used for the duration of this visit. Presenting for an annual exam. The patient has had persistent anemia, which has shown slight improvement with iron and vitamin C supplementation, but her levels remain low. She is scheduled to be seeing by hematology next month. She reports very painful and heavy menstrual periods that occur every 18 days, for which she takes Tylenol. About a month ago, she experienced pain that started in her anterior hip/flank and radiated to her back. This is a new pain that occurs after prolonged sitting and resolves with walking. 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 Son No problems noted. Son No problems noted. Son No problems noted. Social History Housing: Apartment Alcohol intake: former Patient Tobacco Use Status: Never used Tobacco e-Cigarette/Vaping Use: Never Used Second Hand Smoke Exposure: No service: No Current occupational status: employed (Part) Cognitive needs: No Hearing needs: No Vision needs: Yes (Glasses) Questionnaire PHQ-9 Over the last 2 weeks, how often have you been bothered by any of the following problems? 1. Little interest or pleasure in doing things: not at all 2. Feeling down, depressed, or hopeless: not at all 3. Trouble falling or staying asleep, or sleeping too much: not at all 4. Feeling tired or having little energy: not at all 5. Poor appetite or overeating: not at all 6. Feeling bad about yourself - or that you are a failure or have let yourself or your family down: not at all 7. Trouble concentrating on things, such as reading the newspaper or watching television: not at all 8. Moving or speaking so slowly that other people could have noticed. Or the opposite - being so fidgety or restless that you have been moving around a lot more than usual: not at all 9. Thoughts that you would be better off or of hurting yourself in some way: not at all Total score: 0 Depression Screening Interpretation: Negative Depression Screening Done: Yes Source: Developed by Drs. Hugo Huggins, Belkis Campbell, Manjeet Call and colleagues, with an educational ginna from [employer]. Thrive Questionnaire Date Thrive assessed: 04/19/25 I am a: Patient What is your living situation today?: I have a steady place to live Within the past 12 months, did the food you bought not last and you didn't have the money to get more?: Never true Within the past 12 months, did you worry whether your food would run out before you got money to buy more?: Never true Do you have trouble paying for medicines?: No Do you have trouble getting transportation to medical appointments?: No Do you have trouble paying your heating and electricity bill?: No Do you have trouble taking care of your child, family member or friend?: No Do you have trouble with day-to-day activities such as bathing, preparing meals, shopping, managing finances, etc.?: No Are you currently unemployed and looking for a job?: Yes Are you interested in more education?: I choose not to answer this question Please select the resources that you would like help with: Job search/training Currently or been in a relationship where the following occur: No concerns reported THRIVE Score: 0 AUDIT C Alcohol Use Questionnaire (AUDIT-C) 1. How often do you have a drink containing alcohol?: Monthly or less 2. How many drinks containing alcohol do you have on a typical day when you are drinking?: 1 or 2 3. How often do you have six or more drinks on one occasion?: Never Total Score: 1 JONNATHAN-7 AMB Questionnaire JONNATHAN-7 Date JONNATHAN - 7 assessed: 04/21/25 Feeling nervous, anxious, or on edge: 0 = Not at all Not being able to stop or control worryin = Not at all Worrying too much about different things: 0 = Not at all Trouble relaxin = Not at all Being so restless that it is hard to sit still: 0 = Not at all Becoming easily annoyed or irritable: 0 = Not at all Feeling afraid as if something awful might happen: 0 = Not at all Total JONNATHAN-7 score (0-4 normal; 5-9 mild; 10-14 moderate; 15-21 severe): 0 Source: Developed by Drs. Hugo Huggins, Belkis Campbell, Manjeet Call and colleagues, with an educational ginna from [employer]. Review of Systems Const Denies body aches, Denies fatigue, Denies fever(s), Denies frequent falls, Denies headache(s) and Denies weakness Eyes Reports no additional complaints and Denies change in vision ENT Denies dysphagia, Denies dizziness, Denies facial pain, Denies headache(s), Denies nasal congestion and Denies odynophagia Card Denies chest pain, Denies syncope, Denies irregular heart rhythm, Denies leg edema, Denies lightheadedness and Denies dyspnea Resp Denies cough and Denies dyspnea GI Denies abdominal pain, Denies constipation, Denies dysphagia, Denies dyspepsia, Denies heartburn, Denies diarrhea, Denies nausea, Denies odynophagia and Denies vomiting Reports as per HPI, Denies urinary frequency, Denies dysuria, Denies urinary hesitancy and Denies urinary urgency Musc Denies back pain and Denies myalgias Skin/Breast Reports system reviewed and no additional complaints, except as documented Neuro Denies dizziness, Denies syncope, Denies frequent falls, Denies headache(s) and Denies weakness Psych Reports no additional complaints Endo Denies fatigue Physical exam (Primary Care) Vital Signs: Last Vital Signs Temp 97.3 F 09/09/25 15:36 Pulse 93 09/09/25 15:36 BP 132/86 09/09/25 16:11 Pulse Ox 98 09/09/25 15:36 Oxygen Delivery Method Room Air 09/09/25 15:36 BMI result Body Mass Index 43.2 Tobacco/Smoking Status: Tobacco use Status Tobacco use date assessed 06/23/25 09/09/25 15:39 Patient Tobacco Use Status Never used Tobacco 09/09/25 15:39 e-Cigarette/Vaping Use Never Used 09/09/25 15:39 PHQ-9: PHQ-9 Score PHQ-9: Total score 0 09/09/25 15:51 Depression Screening Interpretation: Negative Thrive Assessment: Date of Thrive Assessment Date Thrive assessed 04/19/25 09/09/25 15:39 Currently or been in a relationship where the following occur: No concerns reported Const General: cooperative, healthy appearing, comfortable and no acute distress Orientation/consciousness: patient oriented x3 [facility] Head: Yes normocephalic Ears: hearing grossly normal bilaterally, external ears normal, TM's normal bilaterally and EAC's normal General nose exam: Normal external nose present Face and sinus: Yes normal facial exam and Yes sinuses nontender Mouth: Normal oral and palatal mucosa present and tongue normal Throat: Yes posterior oropharynx normal Eyes General: appearance normal, both eyes and all related structures Conjunctivae: conjunctivae normal Pupils: Equal, round and reactive pupils present EOM: EOMs intact bilaterally and No Nystagmus present Neck Neck: Yes normal visual inspection, Yes full ROM and Yes no lymphadenopathy Chest Chest palpation & inspection: normal inspection of the chest Resp Effort & Inspection: normal respiratory effort Auscultation: clear to auscultation bilaterally, no crackles, no rales, no rhonchi, no wheezes and breath sounds present Cardio Rate: regular rate Rhythm: regular rhythm Peripheral pulses: radial pulses present and dorsalis pedis present GI Inspection: Yes normal to inspection and No Abdominal wall edema Palpation (GI): Soft to palpation, not firm, nontender, no guarding and No Rebound tenderness present Auscultation: normal bowel sounds Rectal Exam - Female: deferred General: Yes no CVA tenderness Back/Spine/Pelvis Back: no CVA tenderness Skin General skin exam: no rashes or lesions noted Neuro General: patient oriented x3 Cranial nerves: Yes Equal, round and reactive pupils present, Yes Midline tongue present, Yes Ability to bilaterally elevate shoulders present and No Nystagmus present Gait exam (Neuro): Normal gait present Extrem General: Yes normal to inspection, Yes full ROM, No no pedal edema and No edema Psych Speech and movement: Normal speech and movement present Affect: normal affect Insight: Good insight present (Psych) Judgement: Good judgement present (Psych) Results AMB Urinalysis, Automated UA Leukoctes 0 Miracle/uL Last Edit by Beth Garibay CMA on 09/09/25 16:37 UA Nitrite Negative Last Edit by Beth Garibay CMA on 09/09/25 16:37 UA Urobilinogen 0.2 mg/dL Last Edit by Beth Garibay CMA on 09/09/25 16:37 UA Protein 0 mg/dL Last Edit by Beth Garibay CMA on 09/09/25 16:37 UA pH 8.0 Last Edit by Beth Garibay CMA on 09/09/25 16:37 UA Blood 200 Nazario/uL Last Edit by Beth Garibay CMA on 09/09/25 16:37 UA Specific [place] 1.010 Last Edit by Beth Garibay CMA on 09/09/25 16:37 UA Ketone Negative Last Edit by Beth Garibay CMA on 09/09/25 16:37 UA Bilirubin 0 mg/dL Last Edit by Beth Garibay CMA on 09/09/25 16:37 UA Glucose 0 mg/dL Last Edit by Beth Garibay CMA on 09/09/25 16:37 Coding Level of Care Code Est Pt Prev Care 40-64y(36352) Diagnoses Annual physical exam Z00.00 Morbid obesity with BMI of 40.0-44.9, adult E66.01; Z68.41 Elevated LFTs R79.89 Mild intermittent asthma without complication J45.20 Asthma severity: mild Asthma persistence: intermittent Asthma complication type: uncomplicated Iron deficiency anemia D50.9 Vitamin D deficiency E55.9 Skin lesion L98.9 Breast mass, right N63.10 Abnormal uterine bleeding N93.9 Hematuria R31.9 Flank pain R10.9 Assessment & Plan Assessment & Plan (1) Annual physical exam: Code(s): Z00.00 - Encounter for general adult medical examination without abnormal findings Category: Medical (2) Morbid obesity with BMI of 40.0-44.9, adult: Code(s): E66.01 - Morbid (severe) obesity due to excess calories; Z68.41 - Body mass index [BMI] 40.0-44.9, adult Category: Medical Plan: Healthy diet and regular exercise is encouraged. Awaiting appointment with weight management clinic. (3) Elevated LFTs: Code(s): R79.89 - Other specified abnormal findings of blood chemistry Category: Medical Plan: Avoid excessive use of Tylenol and alcohol consumption. LFTs remain elevated plan for abdominal US for further evaluation. (4) Asthma: Code(s): J45.909 - Unspecified asthma, uncomplicated Category: Medical Qualifiers: Asthma severity: mild Asthma persistence: intermittent Asthma complication type: uncomplicated Qualified Code(s): J45.20 - Mild intermittent asthma, uncomplicated Plan: Asthma currently controlled on present medications. Continue on albuterol as needed. Avoid triggers such as allergies. (5) Iron deficiency anemia: Code(s): D50.9 - Iron deficiency anemia, unspecified Category: Medical Plan: Patient has been on the iron and Vitamin C supplement and has seen just mild improvement in the hemoglobin. Awaiting appointment with Hematology for further evaluation and treatment (6) Vitamin D deficiency: Code(s): E55.9 - Vitamin D deficiency, unspecified Category: Medical Plan: Vitamin-D low on last blood work plan for supplementation continue to monitor. (7) Skin lesion: Code(s): L98.9 - Disorder of the skin and subcutaneous tissue, unspecified Category: Medical Plan: She has appointment scheduled for April of next year. (8) Breast mass, right: Code(s): N63.10 - Unspecified lump in the right breast, unspecified quadrant Category: Medical Plan: 06/2025: Patient was diagnosed with benign breast lump of the right breast in 2023 she was advised to undergo yearly screening. While in [place] she did request excision of the mass as it can be occasionally painful. We are still awaiting results from her last PCP however I did place a referral to General surgery at patient request. Appointment was made with General surgery but had to be postponed due to delay in records. (9) Abnormal uterine bleeding: Code(s): N93.9 - Abnormal uterine and vaginal bleeding, unspecified Category: Medical Plan: The patient reports heavy, painful menses every 18 days, with associated flank pain that started a month ago. She is scheduled to see gynecology on Saturday and is advised to discuss these symptoms, as they could be caused by a fibroid or cyst. A urine test will be performed today to rule out a kidney infection as a cause for her flank pain. (10) Hematuria: Code(s): R31.9 - Hematuria, unspecified Category: Medical Plan: Hematuria noticed urinalysis today plan for urine cytology and urine culture for further evaluation. Given the kidney pain plan for renal ultrasound as well. (11) Flank pain: Code(s): R10.9 - Unspecified abdominal pain Category: Medical Plan: See above Plan This note was constructed using voice recognition software. While every effort has been made to ensure accuracy and chronometer assembler and adjuster, still areas may have been included sometimes these areas may affect the content or meeting of the given symptoms. Total time spent caring for the patient today was 20 minutes. This includes time spent before the visit reviewing the chart, time spent during the visit, and time spent after the visit and documentation. Patient was informed and verbally consented to the use of an ambient scribe for clinic note documentation during this visit. Orders: Orders MM tomosynthesis screening BI Today Z12.31 - Encounter for screening mammogram for malignant neoplasm of breast US abdomen limited Today R79.89 - Other specified abnormal findings of blood chemistry AMB Urinalysis Automated Today Z13.9 - Encounter for screening, unspecified Urine Cytology Today R31.9 - Hematuria, unspecified Urine Culture Today R31.9 - Hematuria, unspecified US renal BI Today R10.9 - Unspecified abdominal pain, R31.9 - Hematuria, unspecified Referrals Cologuard Test Z12.11 - Encounter for screening for malignant neoplasm of colon, Z12.12 - Encounter for screening for malignant neoplasm of rectum
[2025-09-09 16:11] VITALS: BP 132/86
== END 2025-09-09 16:34 | disposition home or self-care (01) ==
LOC: HO.HMCH 15:32
DX: Z00.00 Encounter for general adult medical examination without abnormal findings (principal); E66.01 Morbid (severe) obesity due to excess calories; Z68.41 Body mass index [BMI] 40.0-44.9, adult; R79.89 Other specified abnormal findings of blood chemistry; J45.20 Mild intermittent asthma, uncomplicated; D50.9 Iron deficiency anemia, unspecified; E55.9 Vitamin D deficiency, unspecified; L98.9 Disorder of the skin and subcutaneous tissue, unspecified; N63.10 Unspecified lump in the right breast, unspecified quadrant; N93.9 Abnormal uterine and vaginal bleeding, unspecified; R31.9 Hematuria, unspecified; R10.9 Unspecified abdominal pain; Z13.9 Encounter for screening, unspecified

== ENCOUNTER 2025-09-09 15:31 | Outpatient (REF) | payer OTHER, SELFPAY | END 2025-09-09 15:32 | disposition home or self-care (01) | LOC: HO.LNP 15:31 | DX: Z00.00 Encounter for general adult medical examination without abnormal findings (principal); R31.9 Hematuria, unspecified; J45.909 Unspecified asthma, uncomplicated; D64.9 Anemia, unspecified; R79.89 Other specified abnormal findings of blood chemistry; J45.20 Mild intermittent asthma, uncomplicated; D50.9 Iron deficiency anemia, unspecified; E55.9 Vitamin D deficiency, unspecified; L98.9 Disorder of the skin and subcutaneous tissue, unspecified; N63.10 Unspecified lump in the right breast, unspecified quadrant; N93.9 Abnormal uterine and vaginal bleeding, unspecified; R10.9 Unspecified abdominal pain; E66.01 Morbid (severe) obesity due to excess calories; Z68.41 Body mass index [BMI] 40.0-44.9, adult | CPT/HCPCS: 81003; 87086; 88112; 99396 ==

== ENCOUNTER 2025-09-13 13:27 | Outpatient (REF) | payer OTHER, SELFPAY ==
[2025-09-13 18:28] LABS: CT PCR NOT DETECTED (Not Detect.); NG PCR NOT DETECTED (Not Detect.)
== END 2025-09-13 13:28 | disposition home or self-care (01) ==
LOC: HO.LNP 13:27
PROVIDERS: Visit Provider Obstetrics & Gynecology
DX: Z01.419 Encounter for gynecological examination (general) (routine) without abnormal findings (principal); N93.9 Abnormal uterine and vaginal bleeding, unspecified; Z12.31 Encounter for screening mammogram for malignant neoplasm of breast; Z98.51 Tubal ligation status; Z20.2 Contact with and (suspected) exposure to infections with a predominantly sexual mode of transmission
CPT/HCPCS: 87491; 87591; 87626; 88175; 99202

== ENCOUNTER 2025-09-13 13:27 | Outpatient (AMB) | payer OTHER, SELFPAY ==
[2025-09-13 13:37] VITALS: BP 138/82; BMI 43.2
--- NOTE | 2025-09-13 13:37 | MHC.OFFVIS ---
Vital Signs 09/13/25 13:37 Height 5 ft 2.5 in Weight 240 lb BMI 43.2 BP 138/82 Intake Visit Reasons: irregular bleeding Facing Cutting Machine Operator Required: Yes Facing Cutting Machine Operator Language: Sales Development Consultant Services: Facing Cutting Machine Operator Present (in person) Facing Cutting Machine Operator Name: Ale CAST Information Interpreted: non-clinical & clinical Guitar Teacher: Guitar Teacher Present (Ale CAST) Accompanied by: Self / Same As Patient Allergies No Known Allergies Allergy (Verified 09/13/25 13:39) Is last menstrual period known: Yes Last menstrual period: 08/30/25 HPI Comments Details: Presenting complaining of irregular menstrual cycles associated with the passage of blood clots pelvic cramping. [facility] Medical History Asthma Surgical History History of tubal ligation History of cholecystectomy History of breast biopsy Family History Father Mental health disorder Mother Lupus (systemic lupus erythematosus) Arthritis Daughter No problems noted. Son No problems noted. Son No problems noted. Son No problems noted. Social History Household Members: Family Housing: Apartment Alcohol intake: former Patient Tobacco Use Status: Never used Tobacco e-Cigarette/Vaping Use: Never Used Second Hand Smoke Exposure: No Use of substances other than those prescribed or required for medical reasons: No service: No Current occupational status: unemployed Sexually active: No Sexual orientation: Straight/Heterosexual Gender identity: Female Cognitive needs: No Hearing needs: No Vision needs: Yes (Glasses) Female Reproductive History Menstrual Age of Menarche: 10 Date of last menstrual period: 08/30/25 control method: permanent sterilization Total pregnancies: 5 Full term: 4 Number of Living Children: 4 Ab spontaneous: 1 Review of Systems Const All systems reviewed & are unremarkable except as noted in HPI and below Card Reports as per HPI Resp Reports as per HPI GI Reports as per HPI and Reports no additional complaints Reports as per HPI Physical Exam Vital Signs: Last Vital Signs BP 138/82 09/13/25 13:37 BMI result Body Mass Index 43.2 Const General: cooperative, healthy appearing and comfortable Chest Chest palpation & inspection: normal inspection of the chest and normal palpation of entire chest wall Breast/axilla inspection: normal inspection of the breasts and normal inspection of the axillae Breast/axilla palpation: normal palpation of the breasts, normal palpation of the axillae and no axillary lymphadenopathy Resp Effort & Inspection: normal respiratory effort Auscultation: clear to auscultation bilaterally Percussion: percussion normal Cardio Palpation: normal PMI Rate: regular rate Rhythm: regular rhythm Heart sounds: no murmurs and no rubs Peripheral pulses: Peripheral pulses 2+ throughout GI Inspection: Yes normal to inspection Palpation (GI): Soft to palpation, nontender, no guarding, not rigid and No hepatosplenomegaly present Percussion: Yes normal to percussion Auscultation: normal bowel sounds Rectal Exam - Female: deferred General: Yes bladder normal to palpation External Female Exam: No lesion Speculum Exam - Vagina: normal appearance of the vagina, normal palpation, normal vaginal discharge and not erythematous Speculum Exam - Cervix: normal appearance of the cervix and normal palpation Bimanual exam- vagina & uterus: normal bimanual exam, normal palpation, uterine size normal, bladder normal to palpation, consistency normal and normal palpation Bimanual Exam- Adnexa, other: normal adnexae, no masses and no tenderness Assessment & Plan Assessment & Plan (1) Abnormal uterine bleeding: Code(s): N93.9 - Abnormal uterine and vaginal bleeding, unspecified Category: Medical Plan: Screening mammogram, Co testing done, GC and chlamydia taken CBC, TSH, HCG, and pelvic ultrasound ordered. Discussed with the patient the different causes of abnormal bleeding including thyroid disorders, uterine and ovarian pathology, endometrial hyperplasia, carcinoma and other potential causes. Discussed with the patient the work up including CBC (to r/o anemia), TSH, pelvic Ultrasound, endometrial biopsy to r/o endometrial pathology. All questions answered and the patient verbalized understanding. Instructed the patient to schedule an appointment for an endometrial biopsy in 2 weeks. Orders: Orders HCG Quantitative Today N93.9 - Abnormal uterine and vaginal bleeding, unspecified Complete Blood Count no Diff Today N93.9 - Abnormal uterine and vaginal bleeding, unspecified US pelvic and transvaginal Today N93.9 - Abnormal uterine and vaginal bleeding, unspecified TSH reflex Free T4 Today N93.9 - Abnormal uterine and vaginal bleeding, unspecified MM screening mammo BI Today Z12.31 - Encounter for screening mammogram for malignant neoplasm of breast Coding Level of Care Code New Pt Level 3 (12856) Diagnoses Abnormal uterine bleeding N93.9
== END 2025-09-13 13:58 | disposition home or self-care (01) ==
LOC: HO.HWS 13:28
PROVIDERS: Visit Provider Obstetrics & Gynecology
DX: N93.9 Abnormal uterine and vaginal bleeding, unspecified (principal)
CPT/HCPCS: 99203

== ENCOUNTER 2025-09-15 13:00 | Outpatient (REF) | payer OTHER, SELFPAY ==
--- NOTE | ~2025-09-15 | US_ITS ---
CLINICAL HISTORY: N93.9 - Abnormal uterine and vaginal bleeding, unspecified US pelvis transvaginal Comparison: None provided Findings: Transvaginal scanning performed. Anteverted uterus is 12.2 cm length. There are uterine myometrial leiomyomata, largest measuring 3.7 x 3.2 x 2.9 cm. No endometrial lesion, 6.0 mm thickness. Right ovary not visualized. Left ovary 2.5 x 2.2 x 1.6 cm. Normal color Doppler of both ovaries. No free fluid. IMPRESSION: 1. Uterine myometrial leiomyomata. This document has been electronically signed by: Adrian Chung MD on 09/16/2025 09:44:05
== END 2025-09-15 13:01 | disposition home or self-care (01) ==
LOC: HO.US 13:00
PROVIDERS: Visit Provider Obstetrics & Gynecology
DX: N93.9 Abnormal uterine and vaginal bleeding, unspecified (principal)
CPT/HCPCS: 76830; 76856

== ENCOUNTER → 2025-09-15 13:01 | Outpatient (BNV) | payer OTHER, SELFPAY | PROVIDERS: Visit Provider Specialist | DX: N93.9 Abnormal uterine and vaginal bleeding, unspecified (principal); D25.9 Leiomyoma of uterus, unspecified | CPT/HCPCS: 76830; 76856 ==

== ENCOUNTER 2025-09-20 15:12 | Outpatient (REF) | payer OTHER, SELFPAY ==
--- NOTE | ~2025-09-20 | MM_ITS ---
EXAMINATION: MM SCREENING DIGITAL BREAST TOMOSYNTHESIS, BILATERAL CLINICAL INFORMATION: Screening. Asymptomatic. COMPARISON: Mammography: Comparison is made with available priors TECHNIQUE: Digital breast mammography with tomosynthesis is performed in both the craniocaudal and mediolateral oblique views along with computer-aided detection (CAD). FINDINGS: There are scattered areas of fibroglandular density. Left: There are no significant masses, abnormal calcifications, or other abnormalities. Right: Circumscribed oval mass with internal calcifications upper outer breast middle depth with a biopsy marker clip. No pathological report available for this biopsied area. Focal asymmetry upper outer breast anterior depth with an internal marker clip. No pathology report available at this time. No suspicious other abnormal findings. MM/MM tomosynthesis screening BI IMPRESSION: Additional imaging is recommended Or obtain pathology reports of both biopsy sites. ASSESSMENT: BI-RADS Category 0: Incomplete - Need Prior Mammograms for Comparison or prior pathology reports if avialable RECOMMENDATION: 1. Additional views of the right breast. 2. Targeted ultrasound if warranted after review of the additional views. 3. Radiology department staff will contact the patient for additional imaging. Additional Imaging required Electronically signed by: Catherine Zhu DO 09/21/2025 06:40 PM [facility]
== END 2025-09-20 15:13 | disposition home or self-care (01) ==
LOC: HO.MAMMO 15:12
DX: Z12.31 Encounter for screening mammogram for malignant neoplasm of breast (principal)
CPT/HCPCS: 77063; 77067

== ENCOUNTER → 2025-09-20 15:16 | Outpatient (BNV) | payer OTHER, SELFPAY | PROVIDERS: Visit Provider Internal Medicine | DX: Z12.31 Encounter for screening mammogram for malignant neoplasm of breast (principal) | CPT/HCPCS: 77063; 77067 ==

== ENCOUNTER → 2025-09-29 13:35 | Outpatient (BNV) | payer OTHER, SELFPAY | PROVIDERS: Visit Provider Internal Medicine | DX: D50.0 Iron deficiency anemia secondary to blood loss (chronic) (principal); N92.0 Excessive and frequent menstruation with regular cycle | CPT/HCPCS: 99203 ==

== ENCOUNTER 2025-10-07 11:13 | Outpatient (REF) | payer OTHER, SELFPAY ==
--- NOTE | ~2025-10-07 | US_ITS ---
EXAMINATION: US DIAGNOSTIC ULTRASOUND BREAST, RIGHT CLINICAL INFORMATION: Call back from screening for oval masses in the upper outer right breast. Both masses have clips within or near these masses. Patient gives history of 2 biopsies in [place] of benign fibroadenomas she thinks.. COMPARISON: Comparison is made with relevant prior imaging. TECHNIQUE: Ultrasound of the breast is performed with real-time mccall scale imaging and color Doppler. FINDINGS: Targeted color Doppler ultrasound scanning in the upper outer right breast demonstrates 2 adjacent hypoechoic oval circumscribed solid masses at 10:00 6 cm from the nipple 1 measuring 20 x 27 x 11 mm the smaller adjacent measures 10 x 11 x 7 mm. Targeted color Doppler ultrasound 10:00 11 cm from nipple demonstrates a hypoechoic oval circumscribed solid mass with internal dystrophic calcifications measuring 24 x 36 x 23 mm. Results are discussed with the patient at time of visit. US/US Breast RT Limited Mamm Only IMPRESSION: Hypoechoic oval solid masses at 10:00 6 cm from the nipple and 10:00 11 cm from the nipple to large masses have biopsy clips within or just adjacent to the masses. Patient gives history of probable fibroadenomas however no pathology reports for biopsy images are seen. Ultrasound-guided core needle biopsies were offered to the patient of all 3 masses however patient prefers six-month follow-up ultrasound at this time for further evaluation of stability in size and morphology. Recommend breast surgical consultation as patient has pain in this area upon palpation. ASSESSMENT: BI-RADS 3: Probably Benign RECOMMENDATION: Diagnostic ultrasound in 6 months. Breast surgical consultation is recommended. Surgical referral need to be ordered by the patient's primary care physician. Electronically signed by: Catherine Zhu DO 10/07/2025 12:16 PM [facility]
== END 2025-10-07 11:14 | disposition home or self-care (01) ==
LOC: HO.MAMMO 11:13
DX: N63.10 Unspecified lump in the right breast, unspecified quadrant (principal)
CPT/HCPCS: 76642

== ENCOUNTER → 2025-10-07 12:00 | Outpatient (BNV) | payer OTHER, SELFPAY | PROVIDERS: Visit Provider Internal Medicine | DX: N63.11 Unspecified lump in the right breast, upper outer quadrant (principal) | CPT/HCPCS: 76642 ==

== ENCOUNTER 2025-10-11 15:18 | Outpatient (AMB) | payer OTHER, SELFPAY ==
--- NOTE | 2025-10-11 15:20 | A.OFFVIS_ITS ---
Vital Signs 3 10/11/25 15:28 Height 5 ft 2 in Weight 243 lb BMI 44.4 BP 141/78 H Blood Pressure Location Lt brachial Position Sitting Pulse 91 Intake Visit Reasons: Unspecified lump in the right breast Intake Note: Patient is seen in office for evaluation of a lump in the right breast. Pt c/o: onset for yrs,has 3 lumps, 2 bx done in the past and was told there are fibroadenoma, lump rt breast near the axilla, another above the nipple and a third unknown site, admits to pain us:10/07/25 mm:09/20/25 All Source Intelligence Technician Required: Yes All Source Intelligence Technician Language: Beauty Consultant Services: All Source Intelligence Technician Present All Source Intelligence Technician Name: Kayleen CAST Information Interpreted: non-clinical & clinical Allergies No Known Allergies Allergy (Verified 10/11/25 15:27) Medication List - Last Reconciled 10/11/25 by Elder Garrison MD albuterol sulfate 90 mcg/actuation (Ventolin HFA) 1 inh inhalation QID ascorbate calcium (vitamin C) 500 mg PO DAILY cholecalciferol (vitamin D3) 25 mcg PO DAILY ferrous sulfate (Feosol) 325 mg PO DAILY hydroxyzine HCl 50 mg PO BEDTIME HPI Comments Details: 45-year-old female patient presenting for evaluation of a painful lump in the right breast. She underwent a screening mammogram on 08/20/2025 and subsequently was called back on 10/07/2025 for right breast ultrasound and additional mammogram images. This revealed 2 adjacent hypoechoic oval circumscribed solid masses in the 10 o'clock position 6 cm from the nipple 1 measuring 20 x 27 x 11 mm in the 2nd measuring 10 x 11 x 7 mm. In the 10 o'clock position 11 cm from the nipple demonstrated a hypoechoic oval circumscribed solid mass with internal dystrophic calcifications measuring 24 x 36 x 23 mm. The lesions in the 10 o'clock position 6 cm from the nipple and in the 10 o'clock position 11 cm from the nipple have biopsy clips adjacent to them and were previously biopsied in [place] several years ago. (BI-RADS 3). 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 She denies any pain associated with the lesions. She is able to feel the lesion 11 cm from the nipple. She was offered needle biopsy of the 3 densities or six-month follow-up and has chosen six-month follow-up. Arrangements have been made for six-month follow-up ultrasound. Her menarche was the age of 10. She is and reports breast-feeding her 4 children. Her 1st child was born when she was 16 years old. Her family history is negative for breast cancer. [facility] Medical History Asthma Surgical History History of tubal ligation History of cholecystectomy History of breast biopsy Family History Father Mental health disorder Mother Lupus (systemic lupus erythematosus) Arthritis Daughter No problems noted. Son No problems noted. Son No problems noted. Son No problems noted. Social History Household Members: Family Housing: Apartment Alcohol intake: former Patient Tobacco Use Status: Never used Tobacco e-Cigarette/Vaping Use: Never Used Second Hand Smoke Exposure: No service: No Current occupational status: unemployed Sexual orientation: Straight/Heterosexual Gender identity: Female Cognitive needs: No Hearing needs: No Vision needs: Yes (Glasses) Female Reproductive History Menstrual Age of Menarche: 10 Review of Systems Const All systems reviewed & are unremarkable except as noted in HPI and below Physical Exam Vital Signs: Last Vital Signs Pulse 91 10/11/25 15:28 BP 141/78 H 10/11/25 15:28 BMI result Body Mass Index 44.4 Const General: cooperative and no acute distress Nutritional Appearance: well nourished Orientation/consciousness: patient oriented x3 Limitations: no limitations HEENT Head: Yes normocephalic and Yes atraumatic Ears: hearing grossly normal bilaterally Chest Other: Left breast: No skin change, no nipple retraction, no nipple discharge, no palpable mass, no enlarged lymph nodes. Right breast: No skin change, no nipple retraction, no nipple discharge, palpable mass upper outer quadrant approximately 10 cm from the nipple with smooth margins mobile within the breast tissue consistent with a fibroadenoma measuring approximately 2 cm in diameter as noted below no enlarged lymph nodes Chest/axillae images: 2 1. Palpable mass right breast upper outer quadrant. No other palpable lesions are noted at this time. Resp Effort & Inspection: normal respiratory effort, no audible wheezes, no cough and no respiratory distress Cardio Jugular venous distension: no JVD GI Inspection: Yes normal to inspection Skin Other: Warm, dry, no rash Neuro General: patient oriented x3 Extrem General: Yes no clubbing, cyanosis or edema Assessment & Plan Assessment & Plan (1) Breast mass, right: Code(s): N63.10 - Unspecified lump in the right breast, unspecified quadrant Category: Medical Qualifiers: Breast mass location: upper outer quadrant Qualified Code(s): N63.11 - Unspecified lump in the right breast, upper outer quadrant Plan Patient with a known history of right breast lumps and a previous ultrasound- guided biopsy performed in [place] 2 years ago. These were apparently determined to be fibroadenoma. Three densities were confirmed on recent mammogram and ultrasound and felt to be low suspicion for malignancy (BI-RADS 3). Six-month follow-up ultrasound is recommended. On examination 1 of the lesions is palpable in feels most consistent with a fibroadenoma measuring approximately 2 cm in diameter. I am unable to palpate any further lesions at this time. We discussed the possibility of ultrasound biopsy verses continued observation in detail as well as excision of the palpable mass. She is comfortable with continuing to monitor the lesions and will return in 6 months after her next ultrasound for reexamination. She is welcome to call sooner for any new concerns. Coding Level of Care Code New Pt Level 4 (68180) Diagnoses Mass of upper outer quadrant of right breast N63.11 Breast mass location: upper outer quadrant
[2025-10-11 15:28] VITALS: BP 141/78; PULSE 91; BMI 44.4
== END 2025-10-11 15:46 | disposition home or self-care (01) ==
LOC: HO.HGS 15:19
PROVIDERS: Visit Provider Surgery
DX: N63.11 Unspecified lump in the right breast, upper outer quadrant (principal)
CPT/HCPCS: 99204

== ENCOUNTER → 2025-10-11 15:18 | Outpatient (BNVA) | payer OTHER, SELFPAY | PROVIDERS: Visit Provider Surgery | DX: N63.11 Unspecified lump in the right breast, upper outer quadrant (principal) | CPT/HCPCS: 99202 ==

== ENCOUNTER 2025-10-14 15:38 | Outpatient (REF) | payer OTHER, SELFPAY | END 2025-10-14 15:39 | disposition home or self-care (01) | LOC: HO.LNP 15:38 | PROVIDERS: Visit Provider Obstetrics & Gynecology | DX: N93.9 Abnormal uterine and vaginal bleeding, unspecified (principal); Z32.02 Encounter for pregnancy test, result negative; Z98.51 Tubal ligation status | CPT/HCPCS: 88305 ==

== ENCOUNTER 2025-10-14 15:38 | Outpatient (AMB) | payer OTHER, SELFPAY ==
--- NOTE | 2025-10-14 16:07 | MHC.OFFVIS ---
Vital Signs 10/14/25 16:13 Height 5 ft 2 in Weight 243 lb BMI 44.4 Intake Visit Reasons: u/s follow up & emb Allergies No Known Allergies Allergy (Verified 10/11/25 15:27) HPI Comments Details: Presenting for EMB [facility] Medical History Asthma Surgical History History of tubal ligation History of cholecystectomy History of breast biopsy Family History Father Mental health disorder Mother Lupus (systemic lupus erythematosus) Arthritis Daughter No problems noted. Son No problems noted. Son No problems noted. Son No problems noted. Social History Household Members: Family Housing: Apartment Alcohol intake: former Patient Tobacco Use Status: Never used Tobacco e-Cigarette/Vaping Use: Never Used Second Hand Smoke Exposure: No service: No Current occupational status: unemployed Sexual orientation: Straight/Heterosexual Gender identity: Female Cognitive needs: No Hearing needs: No Vision needs: Yes (Glasses) Female Reproductive History Menstrual Age of Menarche: 10 Physical Exam Vital Signs: BMI result Body Mass Index 44.4 Office Procedures Endometrial Biopsy Details: The patient was counseled regarding the indication and benefits of endometrial sampling to rule out endometrial pathology including not limited to endometrial hyperplasia or endometrial cancer and others; The alternatives (Either do nothing vs. hysteroscopy D&C) & the risks were discussed with the patient including but not limited: pain, uterine perforation, bleeding, infection, possible injury to bladder, bowel, ureter, possible need for blood transfusion with all its possible risks. The patient verbalized understanding all questions answered and signed consent. Urine test done in the office was negative The patient was placed into the dorsal lithotomy position; a speculum was inserted in the vagina. Using aseptic technique for the procedure, the cervix was cleansed with Betadine. The anterior lip of the cervix was grasped with a single tooth tenaculum. The uterus was sounded to 7 cm with a 4 mm Pipelle was used. Tissues samples were obtained and placed in formalin, in a patient labeled container and sent to the pathology department. At the end of the procedure, there was minimal bleeding noted The patient tolerated the procedure well and was discharged in good condition with the following instructions: Nothing in the vagina until the bleeding stops. No sex until the bleeding stops, to call if any of the following occurs: fever (>100.4), flu-like symptoms, abdominal pain, heavy bleeding, four smelling vaginal discharge. The patient was instructed to schedule a Follow up appointment in 2 weeks to discuss pathology results of the biopsy and treatment options. This note was generated with a voice recognition program. Some errors may have been overlooked during the review of this note. Sometimes these errors may affect the content or meaning of a given sentence. 34910-H[place] Biopsy Assessment & Plan Assessment & Plan (1) Abnormal uterine bleeding: Code(s): N93.9 - Abnormal uterine and vaginal bleeding, unspecified Category: Medical Plan: EMB done, see procedure Orders: Orders AMB Endometrial Biopsy Today N93.9 - Abnormal uterine and vaginal bleeding, unspecified Coding Level of Care Code Procedure Only Diagnoses Abnormal uterine bleeding N93.9 CPT Codes Endometrial Biopsy - CPT: 59413-Ohfdrvykxyb Biopsy ([id number])
[2025-10-14 16:13] VITALS: BMI 44.4
== END 2025-10-14 16:29 | disposition home or self-care (01) ==
LOC: HO.HWS 15:38
PROVIDERS: Visit Provider Obstetrics & Gynecology
DX: N93.9 Abnormal uterine and vaginal bleeding, unspecified (principal)
CPT/HCPCS: 58100

== ENCOUNTER 2025-10-18 09:18 | Outpatient (REF) | payer OTHER, SELFPAY ==
--- NOTE | ~2025-10-18 | US_ITS ---
CLINICAL HISTORY: R79.89 - Other specified abnormal findings of blood chemistry US abdomen limited with color Doppler Comparison: None Findings: Visualized pancreas is normal. Tail obscured by bowel gas. Liver is normal in size and diffusely echogenic. Right lobe length 15.1 cm. No focal hepatic masses. Common duct 3.0 mm diameter. Post cholecystectomy. No sonographic Ugalde sign. Main portal vein antegrade. Right kidney measures, 10.9 cm in length. Normal cortical width and echotexture. No hydronephrosis calculus or mass. Impression: 1. Hepatic steatosis. 2. Post cholecystectomy 3. Hepatopetal flow in a patent portal vein This document has been electronically signed by: Jose Armando Green MD on 10/18/2025 11:53:21
== END 2025-10-18 09:19 | disposition home or self-care (01) ==
LOC: HO.US 09:18
DX: R79.89 Other specified abnormal findings of blood chemistry (principal)
CPT/HCPCS: 76705

== ENCOUNTER → 2025-10-18 09:20 | Outpatient (BNV) | payer OTHER, SELFPAY | PROVIDERS: Visit Provider Radiology Diagnostic Radiology | DX: K76.0 Fatty (change of) liver, not elsewhere classified (principal); K91.5 Postcholecystectomy syndrome | CPT/HCPCS: 76705 ==

== ENCOUNTER 2025-11-01 08:25 | Outpatient (AMB) | payer OTHER, SELFPAY ==
--- NOTE | 2025-11-01 09:04 | MHC.OFFVISWM ---
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 Wheel Of Fortune Dealer Required: Yes Wheel Of Fortune Dealer Services: Wheel Of Fortune Dealer Present Information Interpreted: clinical only Allergies No Known Allergies Allergy (Verified 11/01/25 09:08) Medication List - Last Reconciled 11/01/25 by Fausto Bermudez MD albuterol sulfate 90 mcg/actuation (Ventolin HFA) 1 inh inhalation QID ascorbate calcium (vitamin C) 500 mg PO DAILY cholecalciferol (vitamin D3) 25 mcg PO DAILY ferrous sulfate (Feosol) 325 mg PO DAILY hydroxyzine HCl 50 mg PO BEDTIME HPI HPI 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 BMI 44.4 *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: Details: Start time: 9.00am, End time: 9.50am ?I spent 45 minutes speaking with the patient on the phone plus an additional 5 minutes reviewing and updating records for a total of 50 minutes HPI Comments Details: Previous weight loss efforts: exercise, liquid shakes, injections Wakes up: 5am, Sleeps: 10pm Breakfast: 6am (bread, cheese, ham, cereal) Lunch: 12pm (fruits) Dinner: 4.30pm (rice, beans , pork) Snacks: 7.30pm (snack) Exercise: none Beverages: Coffee (1 cup/d with sugar), Tea: none, Soda: rarely, Juice: 2-3/wk (orange juice), ETOH: none PFSH Medical History (Updated 11/01/25 @ 09:11 by Fausto Bermudez MD) Morbid obesity Asthma Surgical History History of tubal ligation History of cholecystectomy History of breast biopsy Family History Father Mental health disorder Mother Lupus (systemic lupus erythematosus) Arthritis Daughter No problems noted. Son No problems noted. Son No problems noted. Son No problems noted. Social History Household Members: Family Housing: Apartment Alcohol intake: former Patient Tobacco Use Status: Never used Tobacco e-Cigarette/Vaping Use: Never Used Second Hand Smoke Exposure: No service: No Current occupational status: unemployed Sexual orientation: Straight/Heterosexual Gender identity: Female Cognitive needs: No Hearing needs: No Vision needs: Yes (Glasses) Female Reproductive History Menstrual Age of Menarche: 10 Telehealth Telehealth Telehealth Platform: Telephone Location of provider rendering services: practice address Location of patient: address on file Patient Identification confirmed using: Name, : Yes Telehealth method: voice only Patient verbally consented to treatment: Yes Patient verbally consented to billing insurance company: Yes Patient informed of any privacy concerns related to visit: Yes Minutes spent on Phone/Video with Pt.: 50 Assessment & Plan Assessment & Plan (1) Morbid obesity: Code(s): E66.01 - Morbid (severe) obesity due to excess calories Category: Medical Plan: 1.? Plan for lap sleeve gastrectomy. If diaphragmatic or ventral hernias are present at time of surgery, these will be repaired laparoscopically as well. I emphasized the importance of close follow-up, adherence to instructions and good communication. The surgery does not replace the need to change your lifestlyle which is the cause of the obesity problem. The surgery provides the motivation to try again to change your lifestyle, it reduces the appetite and make the transition to a better lifestyle easier and doubles the amount of weight you would lose compared to doing the lifestyle change without the surgery. You will need to be on a liquid diet with protein shakes for 2 weeks before surgery to maximize weight loss and boost your nutritional status to recover better from surgery and also for the first two weeks after surgery to let the stomach heal before we introduce other foods. After the first 2 weeks we will introduce protein bars and soft foods like scrambled eggs, cottage cheese and yogurt and after the 6th week will introduce meat, fish and cooked vegetables in small amounts. Over time you should be able to eat everything in small amounts. Side effects like nausea, vomiting, heartburn or abdominal pain are not common in the practice unless you are not following in the practice. This operation requires lifetime commitment to following in our practice and communication with me. You will much less weight and experience side effects if you don?t communicate or not following in the practice. Complications are rare and in our practice is about 1/10 of the national average. However, you can develop bleeding that may require transfusion (hasn?t happened for year in the practice), you may from complications (we did not have any deaths in the practice) and infections. Infections are usually a result of breakdown in communication or not understanding or following directions correctly. They are difficult to treat, they can happen during the first 6 weeks, they may require to be in the hospital for weeks or even months, not being able to eat by mouth and you may have drains and surgeries to try and correct the issue. Other risks and complications include possible conversion to an open procedure, leaks, small bowel obstruction, blood clots, cardiac, or pulmonary complications, as fdc complications such as ulcers, insufficient weight loss and vitamin deficiencies. 2. Nutritional counseling. Start with one premade PREMIER protein (buy at [employer] or [employer]) shake (mix 4oz of Premier mixed with 4oz low fat unsweetened almond milk) at 6am-8am, one protein bar (Fit Crunch protein bar, buy at [employer], or [employer]) at 9am-11am, another premade PREMIER protein shake (mix 4oz of Premier mixed with 4oz low fat unsweetened almond milk) at 12pm-2pm, another [employer] protein bar at 3pm-5pm,? dinner at 6pm (8 forks of protein and 8 forks of salad/vegetables) AND one more premade PREMIER protein shake after dinner (mix 4oz of Premier mixed with 4oz low fat unsweetened almond milk) at 8pm-10pm So you do 3 protein shakes, 2 protein bars and one meal per day. Meal to include lean meat (beef, fish, pork, turkey, chicken), or citizen of [place] yogurt, or egg whites, or beans with a salad with olive oil and fruits (berries, pears, apples, kiwi). Avoid salt, breads, potatoes, rice, pasta, desserts. 3. Each shake would be drunk slowly, like coffee in a period of 2 hours. 4. Cut each bar in 4 pieces and eat each piece in 30min ?to make each bar last 2 hours. 5. I emphasized the importance of measuring accurately the food portion and measure it when serving the food in plate 6. The meal portions include 8 full-size forks of meat and 8 full-size forks of salad. You always eat the meat portion but you can replace up to 4 forks for salad/vegetables with rice, potatoes or pasta, or a fruit ?if you like. The less you do it the better weight loss will be. 7. One full-size fork is what it can be scooped on the fork without falling aside and not what can be bit with the fork. Use regular forks like those you find in a typical restaurant. 8.? Please buy the body composition scale we discussed and send me weight measurements as soon as possible and then once a week. Always include your diet and exercise plan. 9. The best choice would be to purchase a stationary bike at home that can track calories. If you get one, please start stationary bike at a resistance level of 4.0 Increase level by 1.0 every 3 min to a max level of 10.0. Stay at this level for 3 min and then return to level 4.0 and repeat same steps until 300 calories are burned. Goal is to burn 2000 calories per week on exercise 10.?It is important of avoiding and for at least 18 months postoperatively and has been discussed at the infosession. 11. Goal is to lose at least 1.5-2lbs per week 12. Goal to lose 10% of your weight before surgery, which is about 24lbs. Ultimate weight goal: 213lbs before surgery 13. Please follow the diet plan exactly without any change. If you don't like something about the plan or you feel hungry you need to communicate with me so I can help you revise the plan. You should not change the plan yourself 14. To be scheduled for EGD to assess the stomach's anatomy. The possibility of biopsies was discussed. Patient needs to avoid use of NSAIDs and aspirin for 1 week prior to EGD. You must be on liquids only the day before your endoscopy. Risks of perforation and bleeding was discussed with the patient. This will be an outpatient procedure with IV sedation. Orders: Orders Insulin Today E66.01 - Morbid (severe) obesity due to excess calories Hemoglobin A1c Today E66.01 - Morbid (severe) obesity due to excess calories Lipid Panel Today E66.01 - Morbid (severe) obesity due to excess calories IRON PROFILE Today E66.01 - Morbid (severe) obesity due to excess calories Vitamin B1 Today E66.01 - Morbid (severe) obesity due to excess calories Ferritin Today E66.01 - Morbid (severe) obesity due to excess calories Vitamin D 25-OH Total Today E66.01 - Morbid (severe) obesity due to excess calories ECG 12 lead EKG Today E66.01 - Morbid (severe) obesity due to excess calories FL upper GI w air Today E66.01 - Morbid (severe) obesity due to excess calories H Pylori Breath Test Today E66.01 - Morbid (severe) obesity due to excess calories Complete Blood Count Auto Diff Today E66.01 - Morbid (severe) obesity due to excess calories Comprehensive Met. Panel Today E66.01 - Morbid (severe) obesity due to excess calories Vitamin B12 and Folate Today E66.01 - Morbid (severe) obesity due to excess calories Zinc Today E66.01 - Morbid (severe) obesity due to excess calories C Reactive Protein Today E66.01 - Morbid (severe) obesity due to excess calories Vitamin A Today E66.01 - Morbid (severe) obesity due to excess calories TSH reflex Free T4 Today E66.01 - Morbid (severe) obesity due to excess calories US abdomen comp w elastography Today E66.01 - Morbid (severe) obesity due to excess calories XR chest 2V Today E66.01 - Morbid (severe) obesity due to excess calories Referrals Behavioral Health Referral E66.01 - Morbid (severe) obesity due to excess calories Nutrition/Dietitian Referral E66.01 - Morbid (severe) obesity due to excess calories
[2025-11-01 09:22] VITALS: BMI 43.4
== END 2025-11-01 09:54 | disposition home or self-care (01) ==
LOC: HO.HBS 08:25
PROVIDERS: Visit Provider Surgery
DX: E66.01 Morbid (severe) obesity due to excess calories (principal)
CPT/HCPCS: 99204